=== PATIENT | female | born 1950 | race Caucasian/White ===

== ENCOUNTER 2020-12-21 18:34 | Emergency (ER) | payer OTHER, MEDICARE ==
[2020-12-21 18:54] VITALS: TEMP 97.6; BMI 26.6
[2020-12-21] MEDS ORDERED: ACETAMINOPHEN 325 MG TABLET (FP) PO ONE (19:22)
[2020-12-21] MEDS ORDERED: ACETAMINOPHEN 325 MG TABLET (FP) ONE (19:45)
[2020-12-21] MEDS ORDERED: LIDOCAINE 5% TOPICAL PATCH TP ONE (23:08)
[2020-12-21] MEDS ORDERED: AZITHROMYCIN 500 MG TABLET PO ONE (23:11)
[2020-12-21] MEDS ORDERED: LIDOCAINE 5% TOPICAL PATCH ONE (23:27)
[2020-12-21] MEDS ORDERED: AZITHROMYCIN 250 MG TABLET ONE (23:28)
[2020-12-21 23:56] VITALS: BP 137/74; PULSE 77
[2020-12-22] MEDS ORDERED: LIDOCAINE PATCH REMOVAL MC ONE (11:00)
== END 2020-12-22 00:21 | disposition home or self-care (01) ==
LOC: JER 18:34
DX: R91.1 Solitary pulmonary nodule (principal); R92.1 Mammographic calcification found on diagnostic imaging of breast; E04.9 Nontoxic goiter, unspecified
CPT/HCPCS: 70450-TC; 71250-TC; 72125-TC; 99285-25

== ENCOUNTER 2021-10-07 11:04 | Inpatient (IN) | payer OTHER, MEDICARE ==
[2021-10-07] MEDS ORDERED: SODIUM CHLORIDE 0.9% 500 ML INFUS.BAG IV ONE ×2 (12:10→15:35)
[2021-10-07] MEDS ORDERED: ACETAMINOPHEN 1000 MG/100 ML BAG IVPB ONE (12:10)
[2021-10-07] MEDS ORDERED: METOCLOPRAMIDE HCL INJECTION 10 MG/2 ML VIAL IVPB ONE (12:11)
[2021-10-07] MEDS ORDERED: ACETAMINOPHEN INJECTION 100 ML IVPB ONE (13:03)
[2021-10-07] MEDS ORDERED: METOCLOPRAMIDE HCL INJECTION 10 MG/2 ML VIAL ONE (13:03)
[2021-10-07 13:37] LABS: BASO % 0.2 % (0-2.0); HEMATOCRIT 37.9 % (32.4-45.2); HEMOGLOBIN 12.8 GM/dL (10.7-15.3); LYMPH % 2.9 % (8-40); MCH 32.7 pg (25.7-33.7); MCHC 33.6 g/dl (32.0-36.0); MEAN CELL VOLUME 97.2 fl (80-96); MEAN PLT VOLUME 9.4 fl (7.5-11.1); MONO % 2.2 % (3.8-10.2); NEUT % 94.7 % (42.8-82.8); PLATELET COUNT 333 10^3/uL (134-434); RDW 15.4 % (11.6-15.6); WHITE BLOOD COUNT 6.3 K/mm3 (4.0-10.0)
[2021-10-07 13:38] LABS: VENOUS BASE EXCESS -3.7 mmol/L (-2-2); VENOUS PCO2 36.8 mmHg (38-52); VENOUS PH 7.374 (7.310-7.410)
[2021-10-07 13:41] LABS: INR 1.04 (0.83-1.09); PROTHROMBIN TIME (PATIENT) 12.2 SEC (9.7-13.0)
[2021-10-07 13:44] LABS: ACTIVATED PTT 22.9 SECONDS (25.2-36.5)
[2021-10-07 14:01] LABS: ANISOCYTOSIS 0; HELMET CELLS 0; HOWELL-JOLLY BODIES 0; MACROCYTOSIS 0; OVALOCYTE 0; PLATELET ESTIMATE NORMAL; ROULEAU 0; SICKELED CELLS 0; TARGET CELLS 0; TEAR DROP CELLS 0; TOXIC GRANULATION 0
[2021-10-07 14:01] LABS: EPI CELLS 8 /uL (0-25.1); HYALINE CASTS 1 /uL (0-3.1); URINE APPEARANCE CLEAR; URINE BACTERIA 8 /uL (0-1359); URINE BILIRUBIN NEGATIVE (NEGATIVE); URINE COLOR YELLOW; URINE GLUCOSE (UA) NEGATIVE (NEGATIVE); URINE KETONE NEGATIVE (NEGATIVE); URINE LEUK ESTERASE NEGATIVE (NEGATIVE); URINE NITRITE NEGATIVE (NEGATIVE); URINE PROTEIN 1+ (NEGATIVE); URINE RBC 27 /uL (0-23.9); URINE WBC 2 /uL (0-25.8)
[2021-10-07 14:04] LABS: CHLORIDE 101 mmol/L (98-107); SODIUM 132 mmol/L (136-145)
[2021-10-07 14:06] LABS: ALBUMIN 3.4 g/dl (3.4-5.0); CALCIUM 8.5 mg/dL (8.5-10.1)
[2021-10-07 14:07] LABS: ANION GAP 10 MMOL/L (8-16); BLOOD UREA NITROGEN 11.1 mg/dL (7-18); CO2 21 mmol/L (21-32); GLUCOSE,RANDOM 131 mg/dL (74-106); LIPASE 49 U/L (73-393)
[2021-10-07 14:09] LABS: CREATININE 0.7 mg/dL (0.55-1.3); SGOT/AST 26 U/L (15-37)
[2021-10-07 14:10] LABS: SGPT/ALT 31 U/L (13-61)
[2021-10-07 14:11] LABS: BILIRUBIN,TOTAL 0.5 mg/dL (0.2-1); TOT PROT 7.2 g/dl (6.4-8.2)
[2021-10-07 14:12] LABS: ALK PHOS 93 U/L (45-117)
[2021-10-07] MEDS ORDERED: LACTATED RINGERS SOLUTION 1,000 ML IV STA (14:42)
[2021-10-07] MEDS ORDERED: ONDANSETRON 4 MG/2 ML VIAL IVPUSH ONE (14:50)
[2021-10-07] MEDS ORDERED: KETOROLAC TROMETHAMINE 30 MG/1 ML VIAL IVPUSH ONE (15:36)
[2021-10-07] MEDS ORDERED: ONDANSETRON 4 MG/2 ML VIAL ONE (15:52)
[2021-10-07] MEDS ORDERED: KETOROLAC TROMETHAMINE 30 MG/1 ML VIAL ONE (15:52)
[2021-10-07] MEDS ORDERED: CEFTRIAXONE 2 GM-D5W BAG 2 GM/50 ML BAG IVPB ONE (16:12)
[2021-10-07] MEDS ORDERED: AMPICILLIN - 2 GM in SODIUM CHLORIDE 100 ML IVPB ONE (16:12)
[2021-10-07] MEDS ORDERED: VANCOMYCIN HCL 1,500 MG in DEXTROSE 5%-WATER - 500 ML IVPB ONE (16:12)
[2021-10-07] MEDS ORDERED: LIDOCAINE HCL 2% (50ML VIAL) SQ ONE (16:18)
[2021-10-07] MEDS ORDERED: LIDOCAINE HCL 2% (20ML MULTI-DOSE VIAL) ONE (16:24)
[2021-10-07] MEDS ORDERED: AMPICILLIN SODIUM 2 GM VIAL ONE (17:36)
[2021-10-07] MEDS ORDERED: CEFTRIAXONE 2 GM/100 ML BAG IVPB ONE (17:36)
[2021-10-07 18:10] LABS: BF GLUCOSE (CSF ONLY) 81 mg/dL (40-70)
[2021-10-07 18:32] LABS: CSF COLOR COLORLESS (COLORLESS)
[2021-10-07 18:33] LABS: CSF APPEARANCE CLEAR (CLEAR); CSF WBC 0 mm3 (0-5)
[2021-10-08 03:11] VITALS: BMI 27.5
[2021-10-08] MEDS ORDERED: ACETAMINOPHEN 1000 MG/100 ML BAG IVPB ONE (05:25)
[2021-10-08] MEDS ORDERED: ACETAMINOPHEN 325 MG TABLET (FP) PO PRN (05:25)
[2021-10-08 09:51] LABS: BASO % 0.3 % (0-2.0); HEMATOCRIT 33.5 % (32.4-45.2); HEMOGLOBIN 11.5 GM/dL (10.7-15.3); LYMPH % 7.2 % (8-40); MCH 33.1 pg (25.7-33.7); MCHC 34.2 g/dl (32.0-36.0); MEAN CELL VOLUME 96.8 fl (80-96); MEAN PLT VOLUME 8.9 fl (7.5-11.1); MONO % 4.4 % (3.8-10.2); NEUT % 88.1 % (42.8-82.8); PLATELET COUNT 253 10^3/uL (134-434); RBC 3.46 M/mm3 (3.60-5.2); RDW 15.7 % (11.6-15.6); WHITE BLOOD COUNT 5.8 K/mm3 (4.0-10.0)
[2021-10-08 10:06] LABS: CALCIUM 7.5 mg/dL (8.5-10.1)
[2021-10-08 10:07] LABS: ALBUMIN 2.7 g/dl (3.4-5.0); BLOOD UREA NITROGEN 10.6 mg/dL (7-18); MAGNESIUM 2.3 mg/dL (1.8-2.4)
[2021-10-08 10:10] LABS: CREATININE 0.6 mg/dL (0.55-1.3); PHOSPHOROUS 2.4 mg/dL (2.5-4.9)
[2021-10-08 10:11] LABS: BILIRUBIN,TOTAL 0.5 mg/dL (0.2-1); TOT PROT 6.2 g/dl (6.4-8.2)
[2021-10-08] MEDS: DULoxetine HCL 30 MG CAPSULE.DR PO SCH (10:53)
[2021-10-08] MEDS ORDERED: ACYCLOVIR INJECTION 700 MG in DEXTROSE 5%-WATER - 100 ML IVPB SCH (11:00)
[2021-10-08] MEDS: SODIUM CHLORIDE 1,000 ML IV SCH (11:43)
[2021-10-08] MEDS: ACYCLOVIR INJECTION 700 MG in DEXTROSE 5%-WATER - 100 ML IVPB SCH ×2 (13:21→17:32)
[2021-10-08] MEDS ORDERED: DEXTROSE 5%-WATER 100 ML IVPB ONE (14:55)
[2021-10-08] MEDS: CEFTRIAXONE 2 GM in DEXTROSE 5%-WATER 2 GM/100 ML BAG IVPB SCH (15:00)
[2021-10-08] MEDS ORDERED: PT OWN MED DRAWER 7, Y5N ONE (17:26)
[2021-10-08] MEDS: HEPARIN NA (PORCINE) 5,000 UNITS/ML 1ML VIAL SQ SCH (21:22)
[2021-10-08] MEDS: MELATONIN 5 MG TABLETS PO PRN (21:23)
[2021-10-08] MEDS: ACETAMINOPHEN 325 MG TABLET (FP) PO PRN (21:23)
[2021-10-09] MEDS: ACYCLOVIR INJECTION 700 MG in DEXTROSE 5%-WATER - 100 ML IVPB SCH ×3 (01:50→17:16)
[2021-10-09] MEDS: ACETAMINOPHEN 325 MG TABLET (FP) PO PRN ×2 (05:27→18:15)
[2021-10-09] MEDS: HEPARIN NA (PORCINE) 5,000 UNITS/ML 1ML VIAL SQ SCH ×3 (05:31→21:12)
[2021-10-09] MEDS ORDERED: DEXTROSE 5%-WATER 100 ML IVPB ONE (09:24)
[2021-10-09] MEDS ORDERED: PT OWN MED DRAWER 7, Y5N ONE ×2 (09:24→17:15)
[2021-10-09] MEDS: CEFTRIAXONE 2 GM in DEXTROSE 5%-WATER 2 GM/100 ML BAG IVPB SCH (09:27)
[2021-10-09] MEDS: DULoxetine HCL 30 MG CAPSULE.DR PO SCH (09:27)
[2021-10-09] MEDS ORDERED: POLYETHYLENE GLYCOL 3350 119 GM BTL PO SCH (10:00)
[2021-10-09 11:27] LABS: BASO % 0.3 % (0-2.0); EOS % 0.5 % (0-4.5); HEMATOCRIT 33.7 % (32.4-45.2); HEMOGLOBIN 11.4 GM/dL (10.7-15.3); LYMPH % 5.3 % (8-40); MCHC 33.9 g/dl (32.0-36.0); MEAN CELL VOLUME 97.4 fl (80-96); MEAN PLT VOLUME 8.8 fl (7.5-11.1); MONO % 4.2 % (3.8-10.2); NEUT % 89.7 % (42.8-82.8); PLATELET COUNT 251 10^3/uL (134-434); RBC 3.46 M/mm3 (3.60-5.2); RDW 15.7 % (11.6-15.6); WHITE BLOOD COUNT 6.6 K/mm3 (4.0-10.0)
[2021-10-09 11:47] LABS: ALBUMIN 2.6 g/dl (3.4-5.0); BLOOD UREA NITROGEN 7.8 mg/dL (7-18); CALCIUM 7.8 mg/dL (8.5-10.1)
[2021-10-09 11:49] LABS: BILIRUBIN,TOTAL 0.2 mg/dL (0.2-1); CREATININE 0.6 mg/dL (0.55-1.3)
[2021-10-09 11:51] LABS: TOT PROT 5.7 g/dl (6.4-8.2)
[2021-10-09] MEDS: SODIUM CHLORIDE 1,000 ML IV SCH ×2 (14:54→21:11)
[2021-10-09 16:01] LABS: HIV INTERPRETATION NEGATIVE (NEGATIVE)
[2021-10-10] MEDS: ACETAMINOPHEN 325 MG TABLET (FP) PO PRN ×2 (01:44→09:41)
[2021-10-10 02:55] LABS: URINE APPEARANCE CLEAR; URINE BILIRUBIN NEGATIVE (NEGATIVE); URINE COLOR YELLOW; URINE GLUCOSE (UA) NEGATIVE (NEGATIVE); URINE KETONE NEGATIVE (NEGATIVE); URINE LEUK ESTERASE NEGATIVE (NEGATIVE); URINE NITRITE NEGATIVE (NEGATIVE); URINE PROTEIN NEGATIVE (NEGATIVE); URINE UROBILINOGEN 0.2 mg/dL (0.2-1.0)
[2021-10-10] MEDS: ACYCLOVIR INJECTION 700 MG in DEXTROSE 5%-WATER - 100 ML IVPB SCH ×2 (03:00→09:47)
[2021-10-10] MEDS: HEPARIN NA (PORCINE) 5,000 UNITS/ML 1ML VIAL SQ SCH ×3 (05:55→21:04)
[2021-10-10] MEDS ORDERED: PT OWN MED DRAWER 7, Y5N ONE (09:34)
[2021-10-10] MEDS ORDERED: DEXTROSE 5%-WATER 100 ML IVPB ONE (09:35)
[2021-10-10] MEDS: DULoxetine HCL 30 MG CAPSULE.DR PO SCH (09:41)
[2021-10-10] MEDS: CEFTRIAXONE 2 GM in DEXTROSE 5%-WATER 2 GM/100 ML BAG IVPB SCH (09:47)
[2021-10-10] MEDS: POLYETHYLENE GLYCOL (HEALTHYLAX) 3350 17 GM PACKET PO SCH (09:48)
[2021-10-10 10:06] LABS: HEMATOCRIT 33.2 % (32.4-45.2); HEMOGLOBIN 10.8 GM/dL (10.7-15.3); MCHC 32.6 g/dl (32.0-36.0); MEAN CELL VOLUME 98.2 fl (80-96); MEAN PLT VOLUME 9.2 fl (7.5-11.1); PLATELET COUNT 276 10^3/uL (134-434); RBC 3.38 M/mm3 (3.60-5.2); RDW 15.8 % (11.6-15.6)
[2021-10-10 10:33] LABS: CALCIUM 7.7 mg/dL (8.5-10.1)
[2021-10-10 10:37] LABS: CREATININE 0.5 mg/dL (0.55-1.3)
[2021-10-10 10:38] LABS: BILIRUBIN,TOTAL 0.5 mg/dL (0.2-1); TOT PROT 5.9 g/dl (6.4-8.2)
[2021-10-10 10:58] LABS: ALBUMIN 2.4 g/dl (3.4-5.0)
[2021-10-10] MEDS: SODIUM CHLORIDE 1,000 ML IV SCH (13:19)
[2021-10-10] MEDS: ACETAMINOPHEN/CAFFEINE/BUTALBITAL 1 TAB PO SCH ×3 (13:22→22:33)
[2021-10-10] MEDS: MELATONIN 5 MG TABLETS PO PRN (22:33)
[2021-10-11] MEDS: ACETAMINOPHEN/CAFFEINE/BUTALBITAL 1 TAB PO SCH ×5 (06:09→22:46)
[2021-10-11] MEDS: HEPARIN NA (PORCINE) 5,000 UNITS/ML 1ML VIAL SQ SCH ×3 (06:09→21:07)
[2021-10-11] MEDS: DULoxetine HCL 30 MG CAPSULE.DR PO SCH (09:10)
[2021-10-11] MEDS: POLYETHYLENE GLYCOL (HEALTHYLAX) 3350 17 GM PACKET PO SCH (09:10)
[2021-10-11 10:36] LABS: BASO % 0.2 % (0-2.0); HEMATOCRIT 31.3 % (32.4-45.2); HEMOGLOBIN 10.4 GM/dL (10.7-15.3); LYMPH % 11.3 % (8-40); MCH 32.1 pg (25.7-33.7); MCHC 33.2 g/dl (32.0-36.0); MEAN CELL VOLUME 96.6 fl (80-96); MONO % 3.8 % (3.8-10.2); NEUT % 83.7 % (42.8-82.8); PLATELET COUNT 334 10^3/uL (134-434); RBC 3.25 M/mm3 (3.60-5.2); RDW 15.8 % (11.6-15.6); WHITE BLOOD COUNT 4.5 K/mm3 (4.0-10.0)
[2021-10-11 10:39] LABS: INR 1.08 (0.83-1.09); PROTHROMBIN TIME (PATIENT) 12.7 SEC (9.7-13.0)
[2021-10-11 11:05] LABS: ALBUMIN 2.2 g/dl (3.4-5.0); BLOOD UREA NITROGEN 5.7 mg/dL (7-18); CALCIUM 8.1 mg/dL (8.5-10.1)
[2021-10-11 11:08] LABS: CREATININE 0.6 mg/dL (0.55-1.3)
[2021-10-11 11:10] LABS: BILIRUBIN,TOTAL 0.4 mg/dL (0.2-1); TOT PROT 5.7 g/dl (6.4-8.2)
[2021-10-12] MEDS: HEPARIN NA (PORCINE) 5,000 UNITS/ML 1ML VIAL SQ SCH ×3 (06:11→23:30)
[2021-10-12] MEDS: DULoxetine HCL 30 MG CAPSULE.DR PO SCH (09:43)
[2021-10-12] MEDS: POLYETHYLENE GLYCOL (HEALTHYLAX) 3350 17 GM PACKET PO SCH (09:44)
[2021-10-12] MEDS: ACETAMINOPHEN 325 MG TABLET (FP) PO PRN (20:54)
[2021-10-13 00:06] LABS: LYME PCR CSF Negative (Negative)
[2021-10-13] MEDS: HEPARIN NA (PORCINE) 5,000 UNITS/ML 1ML VIAL SQ SCH ×3 (05:44→21:30)
[2021-10-13 10:09] LABS: BASO % 0.3 % (0-2.0); EOS % 0.9 % (0-4.5); HEMATOCRIT 32.6 % (32.4-45.2); HEMOGLOBIN 10.7 GM/dL (10.7-15.3); LYMPH % 7.5 % (8-40); MCH 31.9 pg (25.7-33.7); MCHC 32.8 g/dl (32.0-36.0); MEAN CELL VOLUME 97.1 fl (80-96); MEAN PLT VOLUME 8.5 fl (7.5-11.1); MONO % 4.7 % (3.8-10.2); NEUT % 86.6 % (42.8-82.8); PLATELET COUNT 366 10^3/uL (134-434); RBC 3.36 M/mm3 (3.60-5.2); RDW 16.1 % (11.6-15.6)
[2021-10-13 10:23] LABS: ALBUMIN 2.3 g/dl (3.4-5.0); BLOOD UREA NITROGEN 9.6 mg/dL (7-18); CALCIUM 8.3 mg/dL (8.5-10.1)
[2021-10-13 10:26] LABS: CREATININE 0.8 mg/dL (0.55-1.3)
[2021-10-13 10:28] LABS: BILIRUBIN,TOTAL 0.5 mg/dL (0.2-1); TOT PROT 6.2 g/dl (6.4-8.2)
[2021-10-13 10:52] LABS: ERYTHROCYTE SEDIMENTATION RATE 89 mm/hr (0-30)
[2021-10-13] MEDS: POLYETHYLENE GLYCOL (HEALTHYLAX) 3350 17 GM PACKET PO SCH (12:17)
[2021-10-13] MEDS: DULoxetine HCL 30 MG CAPSULE.DR PO SCH (12:17)
[2021-10-13] MEDS: ACETAMINOPHEN 325 MG TABLET (FP) PO PRN ×2 (14:26→20:39)
[2021-10-14] MEDS: HEPARIN NA (PORCINE) 5,000 UNITS/ML 1ML VIAL SQ SCH ×2 (06:20→14:08)
[2021-10-14] MEDS ORDERED: ACETAMINOPHEN/CAFFEINE/BUTALBITAL 1 TAB PO ONE (06:31)
[2021-10-14] MEDS: DULoxetine HCL 30 MG CAPSULE.DR PO SCH (09:45)
[2021-10-14] MEDS: POLYETHYLENE GLYCOL (HEALTHYLAX) 3350 17 GM PACKET PO SCH (09:45)
[2021-10-14 10:12] LABS: CALCIUM 8.2 mg/dL (8.5-10.1)
[2021-10-14 10:13] LABS: ALBUMIN 2.4 g/dl (3.4-5.0); BLOOD UREA NITROGEN 7.9 mg/dL (7-18)
[2021-10-14 10:16] LABS: CREATININE 0.5 mg/dL (0.55-1.3)
[2021-10-14 10:18] LABS: TOT PROT 5.9 g/dl (6.4-8.2)
[2021-10-14 10:19] LABS: BILIRUBIN,TOTAL 0.8 mg/dL (0.2-1)
[2021-10-14 12:30] VITALS: BP 118/61; PULSE 82; TEMP 98.2
[2021-10-17 22:06] LABS: MUMPS AB IGG CSF < 5.0 AU/mL (<=10.9)
[2021-10-18 04:08] LABS: CMV IgG CSF < 0.20 U/mL (.); TOXOPLASMA IGG,CSF < 3.0 IU/mL (.)
== END 2021-10-14 14:46 | disposition home or self-care (01) | DRG 71 ==
LOC: JER 11:04 → JERBED 16:14 → J8W 10-08 00:55
PROVIDERS: ADMIT Internal Medicine
PROC: 009U3ZX Drainage of Spinal Canal, Percutaneous Approach, Diagnostic (ICD-10-PCS; principal; 2021-10-07)
DX: G93.41 Metabolic encephalopathy (principal); E87.1 Hypo-osmolality and hyponatremia; M32.9 Systemic lupus erythematosus, unspecified; R50.9 Fever, unspecified; E27.9 Disorder of adrenal gland, unspecified; R51.9 Headache, unspecified; R92.1 Mammographic calcification found on diagnostic imaging of breast; D75.A Glucose-6-phosphate dehydrogenase (G6PD) deficiency without anemia; M79.7 Fibromyalgia; M81.0 Age-related osteoporosis without current pathological fracture
CPT/HCPCS: 36415; 70450-TC; 70482-TC; 70551-TC; 71045-TC-FY; 71260-TC; 73070-TC-LT-FY; 74177-TC; 80053; 81003; 82272; 82550; 82553; 82607; 82728; 82803; 82945; 82962; 83605; 83615; 83690; 83735; 83916; 84100; 84157; 84443; 84484; 85025; 85027; 85610; 85651; 85730; 86038; 86140; 86160; 86162; 86225; 86235; 86592; 86618; 86644; 86663; 86664; 86665; 86694; 86735; 86765; 86777; 86780; 86787; 86788; 86789; 87040; 87070; 87086; 87205; 87389; 87476; 87529; 87804; 93005; 93010; 93306-TC; 97116-GP; 97161-GP; 99285-25; C9803; J0131; J1644; Q9967; U0003; U0005